=== PATIENT | female | born 1980 | race Two or more races ===

== ENCOUNTER 2017-03-15 12:00 | Emergency (ER) | payer MEDICAID ==
[~2017-03-15] VITALS: Ht 165.1 cm; Wt 69.9 kg
--- NOTE | 2017-03-15 12:00 | NUR ---
BBRA FROM GYM FOR DIZZINESS WHILE WORKING OUT. NAD NOTED. AAO X4, AMB WITH STEADY GAIT. RR EVEN AND UNLABORED. PENDING MD SAGASTUME.
[2017-03-15] MEDS ORDERED: NORT10CA PO (12:13)
[2017-03-15] MEDS ORDERED: ATEN25TA PO (12:13)
[2017-03-15] MEDS ORDERED: IV NS 0.9% 1,000 ML ONE (12:30)
[2017-03-15] MEDS ORDERED: IV NS 0.9% 1,000 ML BAG IV ONE (12:30)
[2017-03-15 12:35] LABS: BASOPHILS # (AUTO) 0.1 /CMM (0.0-0.2); BASOPHILS % (AUTO) 0.8 % (0.0-2.0); EOSINOPHILS # (AUTO) 0.2 /CMM (0.0-0.7); EOSINOPHILS % (AUTO) 2.4 % (0.0-6.0); HEMATOCRIT 39 % (33-45); HEMOGLOBIN 13.2 g/dL (11.5-14.8); LYMPHOCYTES # (AUTO) 1.2 /CMM (0.8-4.8); LYMPHOCYTES % (AUTO) 14.2 % (20.0-44.0); MEAN CORPUSCULAR HEMOGLOBIN 32 PG (26.0-33.0); MEAN CORPUSCULAR HGB CONC 34 g/dl (31.0-36.0); MEAN CORPUSCULAR VOLUME 94 fL (82-100); MONOCYTES # (AUTO) 0.4 /CMM (0.1-1.30); MONOCYTES % (AUTO) 5.1 % (2.0-12.0); NEUTROPHILS # (AUTO) 6.6 /CMM (1.8-8.9); NEUTROPHILS % (AUTO) 77.5 % (43.0-81.0); PLATELET COUNT (AUTO) 243 /CMM (150-450); RED BLOOD CELL COUNT(AUTO) 4.19 MIL/uL (4.0-5.2); WHITE BLOOD COUNT (AUTO) 8.5 K/uL (4.3-11.0)
[2017-03-15 12:48] LABS: CALCIUM, SERUM 8.9 mg/dL (8.5-10.1); CARBON DIOXIDE 23 mmol/L (21-32); CHLORIDE 105 mmol/L (98-107); GFR 62 mL/min (>60); GLUCOSE 140 mg/dL (74-106); POTASSIUM 3.1 mmol/L (3.5-5.1); SODIUM SERUM 140 mmol/L (136-145); UREA NITROGEN, BLOOD 16 mg/dL (7-18)
[2017-03-15 12:56] LABS: TROPONIN I < 0.017 ng/mL (0.00-0.056)
[2017-03-15] MEDS ORDERED: POTASSIUM CHLORIDE 20 MEQ TAB.PRT.SR PO ONE ×2 (12:59→13:00)
--- NOTE | 2017-03-15 13:30 | NUR ---
pt in no acute distress. continue to monitor.
[2017-03-15 13:56] VITALS: BP 122/77
[2017-03-15 13:56] LABS: APPEARANCE,URINE Clear (CLEAR); BILIRUBIN,URINE Negative (NEGATIVE); BLOOD, URINE Small Ery/uL (NEGATIVE); COLOR,URINE Yellow (YELLOW); KETONES,URINE Trace (NEGATIVE); LEUKOCYTE ESTERASE ,URINE Negative (NEGATIVE); NITRITE, URINE Negative (NEGATIVE); PROTEIN,URINE Negative (NEGATIVE); UROBILINOGEN,URINE 0.2 EU/dL (0.2)
[2017-03-15 14:16] LABS: UGLUCOSE 100 MG/DL mg/dL (NEGATIVE)
[2017-03-15 14:36] LABS: ADD URINE CULTURE NO; BACTERIA,URINE Few /HPF (None Seen); SQUAMOUS EPITHELIAL CELL,UR Few /HPF (None Seen); WBC,URINE 0-2 /HPF (0-3)
== END 2017-03-15 14:49 | disposition home or self-care (01) ==
LOC: ER 12:02
DX: R55 Syncope and collapse (principal); E87.6 Hypokalemia; R42 Dizziness and giddiness; I10 Essential (primary) hypertension; R94.31 Abnormal electrocardiogram [ECG] [EKG]; Z88.6 Allergy status to analgesic agent
CPT/HCPCS: 36415; 71010; 80048; 81001; 84484; 84703; 85025; 93005 ×2; 96360; 99285; A4606; J7030; Z7610; 81000-TC